=== PATIENT | female | born 1965 | race Caucasian/White ===

== ENCOUNTER 2018-12-14 13:04 | Outpatient (CLI) | payer OTHER ==
--- NOTE | 2018-12-15 11:31 | XRAY Report ---
Reason: RIB PAIN AFTER BODY SURFING INJURY, LEFT Procedure Date: 12/14/2018 Accession Number: [id number] / [id number] Procedure: XRS - Ribs 2 View LT CPT Code: FULL RESULT: EXAM: LEFT RIB RADIOGRAPHY EXAM DATE: 12/14/2018 01:36 PM. CLINICAL HISTORY: RIB PAIN AFTER BODY SURFING INJURY, LEFT. COMPARISON: None. TECHNIQUE: 2 views. FINDINGS: Bones: There is a nondisplaced fracture of the left seventh anterior rib. Lungs: No focal opacities evident. No pneumothorax or pleural effusions. Mediastinum: Heart and cardiomediastinal contours are unremarkable. Other: None. IMPRESSION: Nondisplaced left seventh rib fracture as described above. RADIA
== END 2018-12-14 13:05 | disposition home or self-care (01) ==
LOC: DI.S 13:04
PROVIDERS: ATTEND Family Medicine
DX: S22.32XA Fracture of one rib, left side, initial encounter for closed fracture (principal)

== ENCOUNTER 2019-01-04 10:25 | Outpatient (CLI) | payer OTHER ==
--- NOTE | 2019-01-04 15:55 | Mammography Report ---
Reason: SCREENING MAMMO Procedure Date: 01/04/2019 Accession Number: [id number] / [id number] Procedure: MGS - Screening Mammo Dig Bilat CPT Code: FULL RESULT: EXAM: Screening Mammo Dig Bilat DATE: 01/04/2019 10:49 AM CLINICAL HISTORY: Routine screening, nulliparous patient TECHNIQUE: (B) - Bilateral CC and MLO views were obtained. COMPARISON: 06/19/2014, 05/19/2013, 06/09/2012 PARENCHYMAL PATTERN: (VD) - The breasts demonstrate extremely dense parenchyma bilaterally, limiting the sensitivity of mammography. FINDINGS: No significant interval change. There are no suspicious masses, calcifications, or areas of distortion. IMPRESSION: Negative examination. BI-RADS category 1. RECOMMENDATION: (ANNUAL) - Recommend routine annual screening mammography. BI-RADS CATEGORY: (1) - Negative. STANDARD QUALIFYING STATEMENTS: 1. This examination was not reviewed with the aid of Computer-Aided Detection (CAD). 2. A negative or benign imaging report should not preclude biopsy if clinically suspicious findings are present. 3. Dense breasts may obscure an underlying neoplasm. 4. This examination was reviewed without the aid of 3D breast imaging (tomosynthesis).
== END 2019-01-04 10:26 | disposition home or self-care (01) ==
LOC: DI.S 10:25
PROVIDERS: ATTEND Family Medicine
DX: Z12.31 Encounter for screening mammogram for malignant neoplasm of breast (principal)
CPT/HCPCS: 77067

== ENCOUNTER 2020-02-25 08:00 | Outpatient (CLI) | payer MEDICAID, OTHER ==
--- NOTE | 2020-02-25 13:57 | XRAY Report ---
PROCEDURE: Ribs w/PA Chest LT INDICATIONS: RIB PAIN, LEFT TECHNIQUE: 2 views of the left ribs were acquired, along with a single view chest. COMPARISON: Left rib radiographs 12/14/2018. FINDINGS: Surgical changes and devices: None. Bones and chest wall: Subtle undulation of the left anterolateral seventh rib which is new compared t o the prior exam. This is near the skin marker. No dislocation. No suspicious bony lesions. Overlyi ng soft tissues appear unremarkable. Lungs and pleura: No pleural effusions or pneumothorax. Lungs appear clear. Mediastinum: Mediastinal contours appear normal. Heart size is normal. IMPRESSION: Suspect nondisplaced left 7th rib fracture. Lungs are clear. Reviewed by: Trino Black MD on 02/25/2020 12:56 PM [facility] Approved by: Trino Black MD on 02/25/2020 12:56 PM [facility] Station ID: [id number]
--- NOTE | 2020-02-25 13:59 | XRAY Report ---
PROCEDURE: Lumbar Spine 2 View INDICATIONS: BACK PAIN, LUMBAR TECHNIQUE: 2 views of the lumbar spine were acquired. COMPARISON: Same day left rib radiographs. FINDINGS: Bones: 5 [id number] vertebrae are present. There is normal bony alignment. No vertebral body compression fractures. Mild irregularity at the left L1 transverse process. No suspicious bony lesion s. Soft tissues: Overlying bowel gas pattern is normal. No suspicious soft tissue calcifications. IMPRESSION: Mild irregularity at the left L1 transverse process. This could be due to a congenitally unfused santillan sverse process versus acute nondisplaced fracture. Reviewed by: Trino Black MD on 02/25/2020 12:58 PM [facility] Approved by: Trino Black MD on 02/25/2020 12:58 PM [facility] Station ID: [id number]
== END 2020-02-25 23:59 | disposition home or self-care (01) ==
LOC: DI.S 08:00
PROVIDERS: ATTEND Physician Assistant
DX: R93.7 Abnormal findings on diagnostic imaging of other parts of musculoskeletal system (principal)

== ENCOUNTER 2020-04-16 09:57 | Outpatient (CLI) | payer OTHER ==
--- NOTE | 2020-04-17 14:33 | Mammography Report ---
BILATERAL DIGITAL SCREENING MAMMOGRAM 3D/2D WITH EXAGGERATED CC: 04/16/2020 CLINICAL: Routine screening. Comparison is made to exam dated: 01/04/2019 mammogram - [facility]. The tissue o f both breasts is extremely dense, which lowers the sensitivity of mammography. No significant masses, calcifications, or other findings are seen in either breast. There has been no significant interval change. IMPRESSION: NEGATIVE There is no mammographic evidence of malignancy. A 1 year screening mammogram is recommended. This exam was interpreted at Station ID: [id number]. NOTE: For mammograms, a report in lay terms will be sent to the patient. Approximately 15% of breast malignancies will not be visualized mammographically. In the management of a palpable breast mass, a negative mammogram must not discourage biopsy of a clinically suspicious lesion. Electronically Signed By: Adolfo Ceja M.D. [email or web address]/penrad:04/16/2020 14:27:44 ACR BI-RADS Category 1: Negative [id number] PARENCHYMAL PATTERN: (VD) - The breast(s) demonstrate(s) extremely dense parenchyma, limiting the sen sitivity of mammography. BI-RADS CATEGORY: (1) - 1 RECOMMENDATION: (ANNUAL) - Recommend routine annual screening mammography. [id number] 1 year screening LATERALITY: (B)
== END 2020-04-16 09:58 | disposition home or self-care (01) ==
LOC: DI.S 09:57
PROVIDERS: ATTEND Family Medicine
DX: Z12.31 Encounter for screening mammogram for malignant neoplasm of breast (principal)